=== PATIENT | female | born 1955 | race African-American/Black ===

== ENCOUNTER → 2017-07-31 | Outpatient (CLI) | payer OTHER ==
[~2017-07-31] MED LIST: HYDR-2758 PO; LISI-376 PO; LISI10TA2 PO; METF500T4 PO; MULT1TAB52 PO; NAPR500T4 PO; POTA10TA5 PO; TIZA4CAP3 PO
--- NOTE | 2017-07-31 18:59 | PAIN ---
DATE OF SERVICE: 07/31/2017 INITIAL CONSULTATION FOR PAIN CLINIC CHIEF COMPLAINT: Low back and left lower extremity pain. HISTORY OF PRESENT ILLNESS: This is a 61-year-old female who presents with history of pain, low back, left lower extremity for about one month. The patient reports there is not any specific injury or accident that she is aware of. The pain just began to hurt when she was walking one day in the low back, left lower extremity with radiation into the posterior low back, left gluteus into the left posterior thigh, lateral thigh, anterior thigh to some extent into the posterior lower leg, into the ankle with the sharp, throbbing, stabbing quality, numbness and radiation to the leg on the left side and burning sensation as well. The patient reports no symptoms on the right side and again no inciting accident or injury that she is aware of. The patient reports it awakens her from sleep at least twice at night. Does not affect her bowel or bladder control, but does affect her ability to walk and she is using a walker at all times when she is ambulating at this time. The patient has tried physical therapy. She has tried exercising. She is still doing some exercises at home. Some E-Stim helps as do cold packs with physical therapy. She has tried naproxen, Zanaflex and hydrocodone. Hydrocodone does help to some extent, but only "takes the edge off." Zanaflex and Naprosyn were not significantly helpful in the past. The patient reports no loss of motor function, but significant fatigability to left leg compared to the right when she is walking. No complete loss of motor function however. The patient did have CT scan of the lumbar spine showing marked degenerative facet hypertrophy on the right L4-L5. Posterior disk osteophyte complex at L5-S1 causing mild central spinal stenosis and moderate left neural foraminal stenosis. Distal right L4-L5 and L5-S1 neural foraminal narrowing as well. PAST MEDICAL HISTORY: Significant for hypertension, type 2 diabetes, anemia, previous blood transfusions, arthritis, cigarette smoking about 10 cigarettes a day. PREVIOUS SURGERY: Include hysterectomy in 2010 and a previous right knee injection, but no surgery. CURRENT MEDICATIONS: The patient's current medications include naproxen, hydrocodone, Zanaflex, lisinopril, multivitamins, metformin and Klor-Con. ALLERGIES: THE PATIENT HAS ALLERGIES TO SEAFOOD, but no medical allergies. FAMILY HISTORY: Significant for hypertension and diabetes. SOCIAL HISTORY: The patient does not drink, but does smoke about 10 cigarettes a day, has for the past 3 years. She is single, has 2 children living at home. Lives locally in [place], [place], where she is currently on disability from her employer. REVIEW OF SYSTEMS: The patient's review of systems is positive for those items mentioned in history of present illness. All systems reviewed and otherwise negative. It is complete, full and well documented on patient's chart. PHYSICAL EXAMINATION: VITAL SIGNS: Today blood pressure is 113/57, pulse 73, respirations 16, temperature 98.4 degrees Fahrenheit, height is 5 feet 4-1/2 inches and weight is 176 pounds. GENERAL: The patient is awake, alert, oriented and appropriate, very pleasant demeanor. HEENT: Head shows normocephalic, atraumatic. Extraocular movements are intact and symmetrical. Oral cavity, mucous membranes moist and pink. Dentition is intact. NECK: Shows anterior throat supple without palpable lymphadenopathy noted. Swallow reflex is symmetrical. CHEST: Shows normal on inspection. Breath sounds clear to auscultation bilaterally. HEART: Shows S1 and S2 clear. No murmurs auscultated. ABDOMEN: Soft, nontender and nondistended. No palpable organomegaly. There is no rebound or guarding demonstrated. BACK: The patient's back shows spine grossly in the midline. Normal-appearing thoracic kyphosis and lumbar lordotic curvature. No previous bruises, lesions, rashes or scars are noted. The patient's lumbar paraspinous muscle shows symmetrical with inspection and palpation. Shows some [id number] tenderness in the lower lumbar distribution, more on the right than the left with palpation, but it is roughly symmetrical. No evidence of atrophy, hypertrophy. No trigger points. No radiation of pain. No tenderness over spinous processes. No tenderness over the sacrum or sacroiliac regions bilaterally. The patient shows good rotation and motion of the lumbar spine, both laterally greater than 10 degrees right and left as well as extension greater than 10 degrees, forward flexion 45 degrees without difficulty or pain reported. Lower extremities show deep tendon reflexes at 1+ in the patellar and tendocalcaneus tendons are equal. Motor exam is approximately 4 on a scale of 5 with left dorsiflexion, extension and 5/5 on the right. Peripheral pulses are 1+ posterior tibial and dorsalis pedis pulses. No peripheral edema is noted. No clubbing, no cyanosis. Lower extremities are warm and dry to touch, equal in color and appearance. Straight leg raise noted to be positive on the right at about 30 degrees. It is decreased but not completely relieved with knee flexion. Left side is negative. Gaenslen and Sandro maneuvers are negative bilaterally as well. The patient is able to stand, stand on her toes, but loses balance easily. Again she is using a walker and appears to favor the right lower extremity fairly significantly with ambulation. IMPRESSION: 1. This is a 61-year-old female with 1 month history of increasing pain, low back, left lower extremity in a radicular fashion following the grossly L5-S1 dermatome. 2. Arthritis. 3. Hypertension. 4. Diabetes. 5. Cigarette smoking. PLAN: Options were discussed with the patient including conservative medical management, physical therapy and interventional techniques. She would like to pursue interventional techniques. We discussed a lumbar epidural steroid injection using description as well as anatomical models to describe the procedure. The patient will wait for preauthorization with her insurance provider. We will try a Medrol Dosepak in the meantime. The patient was given instruction as well as side effects to be aware of with the medication and will follow up once preauthorization is obtained. We will plan on lumbar epidural steroid injection at that time. JAGUAR SON MD DR: LUIS M/fidelia JOB#: [id number] / [id number] CHIDI Marquis MD
== END | disposition home or self-care (01) ==
LOC: PNCL 09:00
PROVIDERS: ATTEND Anesthesiology
DX: M51.16 Intervertebral disc disorders with radiculopathy, lumbar region (principal); I10 Essential (primary) hypertension; E11.9 Type 2 diabetes mellitus without complications; R53.83 Other fatigue; F17.210 Nicotine dependence, cigarettes, uncomplicated; Z79.84 Long term (current) use of oral hypoglycemic drugs
CPT/HCPCS: 99214

== ENCOUNTER → 2017-08-01 | Outpatient (CLI) | payer OTHER ==
[~2017-08-01] MED LIST changes: +IOHEXOL 180 MG/ML 10 ML VIAL. ONE; +methylPREDNISolone ACETATE 40 MG/ML VIAL. ONE; +methylPREDNISolone ACETATE 80 MG/ML VIAL. ONE
--- NOTE | 2017-08-02 01:29 | PAIN ---
DATE OF SERVICE: 08/01/2017 DIAGNOSES: Lumbar radiculopathy with lumbosacral degenerative disk disease. HISTORY OF PRESENT ILLNESS: The patient is a 61-year-old female who returns for follow-up status post evaluation and preauthorization for lumbar epidural steroid injection. The patient returns today reporting still significant pain in the base of the lumbar spine, low back, left posterior gluteus, thigh and into the lower leg and foot, stabbing, sharp, shooting radiating, severe off and on in intensity, but always present. The patient reports it is awakening her from sleep several times overnight with lying on her left side. She is sitting with obviously leaning away from her left side trying to get the weight off of the left hip and leg. The patient reports the pain 10 on a scale of 10 at its worst, 9 on average and an 8 at its least and is an 8 currently. The patient reports no new motor or sensory deficits. No new bowel or bladder incontinence or other complaints. PHYSICAL EXAMINATION: VITAL SIGNS: Today, the patient's blood pressure is 130/63, pulse 75, respirations 16, temperature is 97.9 degrees Fahrenheit, height is 5 feet 4 inches, weight is 176 pounds. GENERAL: The patient is awake, alert, oriented, appropriate, very pleasant demeanor. HEENT: Shows normocephalic, atraumatic. Extraocular movements are intact and symmetrical. Oral cavity shows mucous membranes moist and pink. Dentition is intact. NECK: Shows anterior throat supple without palpable lymphadenopathy noted. Swallow reflex is symmetrical. CHEST: Shows normal on inspection. Breath sounds clear to auscultation bilaterally. HEART: Shows S1 and S2 clear. No murmurs auscultated. ABDOMEN: Soft, nontender, nondistended. No palpable organomegaly is noted. BACK: Shows spine grossly in midline. Lumbar paraspinous musculature shows symmetrical on inspection with palpation shows some moderate tenderness to palpation in the lower lumbar distribution, but only diffusely without atrophy, hypertrophy. Good rotation and motion of the lumbar spine, both laterally as well as extension and flexion. EXTREMITIES: Lower extremities showed deep tendon reflexes 1+ in the patellar and tendo calcaneus tendons. Motor exam is approximately 4 on a scale of 5 and 4/5 on the left dorsiflexion and extension and 5/5 on the right. Peripheral pulses are again 1+ without edema. Options were discussed with the patient. The patient's old chart was reviewed as her current medication regimen and updated. Current review of systems is updated today as well. We will proceed with a lumbar epidural steroid injection today with fluoroscopic guidance. Risks were again discussed including, but not limited to bleeding, infection, possibility of epidural hematoma, subsequent neurologic compromise, dural puncture, headaches, spinal cord and/or nerve damage, side effects of steroid medication and poor results regarding pain control. The patient understands and wished to proceed. The patient will return to clinic in approximately 2 weeks for followup, was counseled on return appointment, activity level and side effects to be aware of. DIAGNOSIS: Lumbar radiculopathy with lumbar degenerative disk disease. PROCEDURE: Lumbar epidural steroid injection in translaminar approach at the L5-S1 level using C-arm fluoroscopic guidance under sterile prep and drape using local anesthetic. Medication injected is total of 120 mg of Depo-Medrol plus 10 mL of preservative-free normal saline and 2 mL of Isovue for contrast. CONDITION AT DISCHARGE: Stable. The patient tolerated the procedure well, had no complications. JAGUAR SON MD DR: LUIS M/fidelia JOB#: [id number] / [id number]
== END | disposition home or self-care (01) ==
LOC: PNCL 13:50
PROVIDERS: ATTEND Anesthesiology
DX: M51.16 Intervertebral disc disorders with radiculopathy, lumbar region (principal)
CPT/HCPCS: 62323; J1030; J1040